=== PATIENT | male | born 1995 | race American Indian/Alaskan Native ===

== ENCOUNTER 2017-12-06 13:05 | Emergency (ER) | payer MEDICAID ==
[2017-12-06 13:47] VITALS: RESP 18; TEMP 98.1; O2SAT 100
--- NOTE | 2017-12-06 14:21 | ED PDOC ---
HPI: General Adult Time Seen by Provider: 12/06/17 14:20 Chief Complaint (Nursing): Male Genitourinary Chief Complaint (Provider): penile discharge History Per: Patient Additional Complaint(s): 22-year-old male with history of HIV presents with penile discharge 2 days. Patient reports recent unprotected intercourse. Patient states he is compliant with HIV meds. He lives in [place] and is currently visiting here. Patient reports history of gonorrhea and chlamydia in the past and states that his symptoms today are similar to when he has infection in the past. PMD: in [place] Past Medical History Reviewed: Historical Data, Nursing Documentation, Vital Signs Vital Signs: Last Vital Signs Temp 98.1 F 12/06/17 13:45 Pulse 82 12/06/17 13:45 Resp 18 12/06/17 13:45 BP 101/65 12/06/17 13:45 Pulse Ox 100 12/06/17 13:45 - Medical History PMH: HIV - Surgical History Surgical History: No Surg Hx - Family History Family History: States: No Known Family Hx - Living Arrangements Living Arrangements: With Family - Social History Current smoker - smoking cessation education provided: Yes Alcohol: Social Drugs: Denies - Allergies Allergies/Adverse Reactions: Allergies Allergy/AdvReac Type Severity Reaction Status Date / Time No Known Allergies Allergy Verified 12/06/17 13:45 Review of Systems ROS Statement: Except As Marked, All Systems Reviewed And Found Negative Constitutional: Negative for: Fever Gastrointestinal: Negative for: Nausea, Vomiting, Abdominal Pain Genitourinary Male: Positive for: Penile Discharge. Negative for: Dysuria, Frequency, Incontinence, Hematuria Physical Exam - Reviewed Nursing Documentation Reviewed: Yes Vital Signs Reviewed: Yes - Physical Exam Appears: Positive for: Well, Non-toxic, No Acute Distress Skin: Positive for: Normal Color. Negative for: Rash Eye Exam: Positive for: Normal appearance Cardiovascular/Chest: Positive for: Regular Rate, Rhythm Respiratory: Positive for: Normal Breath Sounds. Negative for: Wheezing, Respiratory Distress Extremity: Positive for: Normal ROM Neurologic/Psych: Positive for: Alert, Oriented - ECG O2 Sat by Pulse Oximetry: 100 Pulse Ox Interpretation: Normal Medical Decision Making Medical Decision Makin22 year old with penile discharge. Patient was treated empirically with 250 mg IM Rocephin and 1 g oral Zithromax. Patient was advised to follow-up with primary doctor upon returning home. Patient was also counseled regarding safe sex practices. Disposition - Clinical Impression Clinical Impression: Penile discharge - Patient ED Disposition Is Patient to be Admitted: No Counseled Patient/Family Regarding: Diagnosis, Need For Followup - Disposition Referrals: [facility] [Outside] Disposition: Routine/Home Disposition Time: 14:30 Condition: STABLE Additional Instructions: Follow-up with primary doctor when you return home. Refrain from unprotected intercourse. Instructions: STD Prevention, Sexually-Transmitted Diseases Forms: [employer] (Telugu)
[2017-12-06] MEDS ORDERED: cefTRIAXone (Rocephin) 250 mg Inj IM STA (14:29)
[2017-12-06] MEDS ORDERED: cefTRIAXone (Rocephin) 250 mg Inj ONE (14:40)
[2017-12-06 20:26] VITALS: BP 110/68; PULSE 78
== END 2017-12-06 15:15 | disposition home or self-care (01) ==
LOC: H.ER 13:05
DX: R36.9 Urethral discharge, unspecified (principal); B20 Human immunodeficiency virus [HIV] disease
CPT/HCPCS: 96372; 99283; J0696